=== PATIENT | male | born 1930 | race Caucasian/White ===

== ENCOUNTER 2016-04-06 14:32 | Emergency (ER) | payer MEDICARE, BC ==
[2016-04-06] MEDS ORDERED: NS 0.9% 1000 ML* 500 ML IV ONE (18:43)
[2016-04-06 19:11] LABS: Hematocrit 46 % (42-52); Hemoglobin 15.5 g/dl (14.0-18.0); Mean Corpuscular HGB Conc 33 g/dl (31-36); Mean Corpuscular Hemoglobin 31 pg (27-31); Mean Corpuscular Volume 93 fL (80-94); Mean Platelet Volume 11 um3 (7.4-10.4); Red Blood Count 4.98 10^6/ul (4.0-5.4); Red Cell Distribution Width 15 % (10.5-15); White Blood Count 10.6 10^3/ul (3.5-10.8)
[2016-04-06 19:27] LABS: ALT 12 U/L (7-52); Albumin 3.5 g/dL (3.2-5.2); Alkaline Phosphatase 105 U/L (34-104); Amylase 43 U/L (29-103); BUN/Creatinine Ratio 12.8 (8-20); Blood Urea Nitrogen 26 mg/dL (6-24); C Reactive Protein 25.53 mg/L (< 5.00); CO2 Carbon Dioxide 24 mmol/L (22-32); Calcium 9.8 mg/dL (8.6-10.3); Chloride 104 mmol/L (101-111); EGFR African American 40.4 (>60); EGFR Non-African American 31.4 (>60); Globulin 4.1 g/dL (2-4); Glucose 151 mg/dL (70-100); Lipase < 10 U/L (11.0-82.0); Sodium 135 mmol/L (133-145); Total Protein 7.6 g/dL (6.4-8.9)
[2016-04-06 19:33] LABS: Anion Gap 7 mmol/L (2-11); Potassium 4.4 mmol/L (3.5-5.0)
[2016-04-06 19:34] LABS: Comments Flag Yes
[2016-04-06] MEDS ORDERED: Iodixanol* (CONTRAST) 320 MG/ML 100 ML SDV IV ONE (19:54)
[2016-04-06 21:27] LABS: AST 26 U/L (13-39)
[2016-04-06] MEDS ORDERED: NS 0.9% 500 ML* 500 ML IV SCH (22:00)
--- NOTE | 2016-04-06 22:03 | RAD ---
Indication: Left abdominal pain, constipation. CT of the abdomen and pelvis was performed after oral and IV contrast administration. Administered 64.9 ml of VISAPAQUE 320 mgi/ml was given according to hospital protocol. Coronal and sagittal reconstructed images were obtained. Lung bases demonstrate bilateral pleural effusions greater on the right than on the left. The heart is enlarged without evidence of pericardial effusion. Liver is normal in size. No focal lesions or intrahepatic ductal dilatation is noted. Gallbladder demonstrates patient to be status post cholecystectomy. Common duct is not dilated. The pancreas demonstrates no mass or pancreatic duct dilatation. The spleen is normal in size. No adrenal lesions are noted. There is enlargement of the left kidney with left hydronephrosis. Left hydroureter is noted. There is a calculi in the left ureter at the L4 level measuring 5 mm. There is delay of excretion of the left kidney. The right kidney is unremarkable. No retroperitoneal adenopathy is noted. No a residual dilatation is noted. Atherosclerotic aorta is noted. Small bowel demonstrates no abnormal dilatation. Fecal stasis is noted with moderate degree of fecal impaction. Urinary bladder is unremarkable. No hernias are noted. IMPRESSION: NO EVIDENCE OF BOWEL OBSTRUCTION IS NOTED. THERE IS FECAL IMPACTION IN THE RECTUM. THERE IS LEFT HYDRONEPHROSIS WITH A 5 MM CALCULI IN THE MID LEFT URETER AT THE L4 LEVEL.
[2016-04-06] MEDS ORDERED: Sodium Phosphate ADULT ENEMA* 118 ml bottle PR ONE (22:35)
[2016-04-06] MEDS ORDERED: Magnesium CITRATE* 300 ML BTL PO ONE (22:35)
[2016-04-06] MEDS ORDERED: Magnesium Hydroxide LIQ* 30 ML UDC PO ONE (22:48)
[2016-04-06] MEDS ORDERED: Polyethylene Glycol 3350* 17 GM PACKET PO SCH (23:00)
--- NOTE | 2016-04-06 23:00 | ED ---
Amadou Fortune Adam, scribed for Tony Dodson MD on 04/06/16 at 1853 . Abdominal Pain/Male - HPI Summary HPI Summary: Pt is an 85 year old male presenting with LLQ abdominal pain and constipation. Pt has Alzheimer's and most of the history was provided by his family. They state that he has been c/o abdominal pain "for awhile". They state that over the past week he has been c/o constipation and has been putting his finger in his rectum in order to have a BM. Pt also c/o nausea and the family reports decreased PO intake and disrupted sleep pattern (increased sleeping during the day and difficulty sleeping at night). PMHx includes bladder CA, ICD, WA, GERD, sebaceous cyst, and cholecystectomy. - History of Current Complaint Chief Complaint: EDAbdPain Stated Complaint: LOWER LT ABD PAIN Time Seen by Provider: 04/06/16 18:43 Hx Obtained From: Patient Onset/Duration: Gradual Onset, Lasting Days, Still Present Timing: Constant, Lasting Days Severity Initially: Moderate Severity Currently: Moderate Pain Intensity: 4 Pain Scale Used: 0-10 Numeric Location: Discrete At: LLQ Radiates: No Aggravating Factor(s): Nothing Alleviating Factor(s): Nothing Associated Signs And Symptoms: Positive: Constipation, Nausea - Allergies/Home Medications Allergies/Adverse Reactions: Allergies Allergy/AdvReac Type Severity Reaction Status Date / Time No Known Allergies Allergy Verified 04/06/16 19:44 PMH/Surg Hx/FS Hx/Imm Hx Cardiovascular History: Reports: Hx Myocardial Infarction, Hx Pacemaker/ICD GI History: Reports: Hx Gastroesophageal Reflux Disease Neurological History: Reports: Other Neuro Impairments/Disorders - Alzheimer's - Cancer History Cancer Type, Location and Year: Bladder CA - Surgical History Surgery Procedure, Year, and Place: Cholecystectomy Infectious Disease History: No Infectious Disease History: Denies: Traveled Outside the [place] in Last 30 Days - Social History Occupation: Retired Lives: With Family - Review of Systems Constitutional: Negative Negative: Fever Positive: Abdominal Pain, Nausea, Other - Constipation, decreased PO intake All Other Systems Reviewed And Are Negative: Yes Physical Exam - Summary Physical Exam Summary: VITAL SIGNS: Reviewed. GENERAL: Patient is a thin male who is lying comfortable in the stretcher. Patient is not in any acute respiratory distress. HEAD AND FACE: No signs of trauma. No ecchymosis, hematomas or skull depressions. No sinus tenderness. EYES: PERRLA, EOMI x 2 EARS: Hearing grossly intact. MOUTH: Oropharynx within normal limits. Dry oral mucosa. NECK: Supple, trachea is midline, no adenopathy, no JVD CHEST: Symmetric, no tenderness at palpation LUNGS: Clear to auscultation bilaterally. No wheezing or crackles. CVS: Regular rate and rhythm, S1 and S2 present, no murmurs or gallops appreciated. ABDOMEN: Soft, flat, non-tender. No signs of distention. No rebound no guarding , and no masses palpated. Bowel sounds are normal. There is no inguinal hernia. Rectal Exam: Normal sphincter tone. I removed some stool for the vault of the rectum. I believe there is more stool outside of my reach. EXTREMITIES: FROM in all major joints, no edema, no cyanosis or clubbing. NEURO: Alert and oriented x 1. No acute neurological deficits. Speech is normal and follows commands. SKIN: Dry and warm Triage Information Reviewed: Yes Vital Signs On Initial Exam: Initial Vitals Temp Pulse Resp BP Pulse Ox 98.1 F 72 16 165/100 97 04/06/16 14:48 04/06/16 14:48 04/06/16 14:48 04/06/16 14:48 04/06/16 14:48 Vital Signs Reviewed: Yes Diagnostics - Vital Signs Vital Signs Temp Pulse Resp BP Pulse Ox 04/06/16 16:55 98 F 80 19 156/108 04/06/16 14:48 98.1 F 72 16 165/100 97 - Laboratory Lab Results: Lab Results 04/06/16 04/06/16 Range/Units 18:55 18:55 WBC 10.6 (3.5-10.8) 10^3/ul RBC 4.98 (4.0-5.4) 10^6/ul Hgb 15.5 (14.0-18.0) g/dl Hct 46 (42-52) % MCV 93 (80-94) fL MCH 31 (27-31) pg MCHC 33 (31-36) g/dl RDW 15 (10.5-15) % Plt Count 145 L (150-450) 10^3/ul MPV 11 H (7.4-10.4) um3 Neut % (Auto) 84.9 H (38-83) % Lymph % (Auto) 7.5 L (25-47) % [place] % (Auto) 6.9 (1-9) % Eos % (Auto) 0.2 (0-6) % Baso % (Auto) 0.5 (0-2) % Absolute Neuts (auto) 9.0 H (1.5-7.7) 10^3/ul Absolute Lymphs (auto) 0.8 L (1.0-4.8) 10^3/ul Absolute Monos (auto) 0.7 (0-0.8) 10^3/ul Absolute Eos (auto) 0 (0-0.6) 10^3/ul Absolute Basos (auto) 0 (0-0.2) 10^3/ul Absolute Nucleated RBC 0.02 10^3/ul Nucleated RBC % 0.2 Sodium 135 (133-145) mmol/L Potassium 4.4 (3.5-5.0) mmol/L Chloride 104 (101-111) mmol/L Carbon Dioxide 24 (22-32) mmol/L Anion Gap 7 (2-11) mmol/L BUN 26 H (6-24) mg/dL Creatinine 2.03 H (0.67-1.17) mg/dL Est GFR ( Amer) 40.4 (>60) Est GFR (Non-Af Amer) 31.4 (>60) BUN/Creatinine Ratio 12.8 (8-20) Glucose 151 H (70-100) mg/dL Calcium 9.8 (8.6-10.3) mg/dL Total Bilirubin 1.40 H (0.2-1.0) mg/dL AST Pending ALT 12 (7-52) U/L Alkaline Phosphatase 105 H (34-104) U/L C-Reactive Protein 25.53 H (< 5.00) mg/L Total Protein 7.6 (6.4-8.9) g/dL Albumin 3.5 (3.2-5.2) g/dL Globulin 4.1 H (2-4) g/dL Albumin/Globulin Ratio 0.9 L (1-3) Amylase 43 (29-103) U/L Lipase < 10 L (11.0-82.0) U/L Result Diagrams: 04/06/16 18:55 04/06/16 18:55 Lab Statement: Any lab studies that have been ordered have been reviewed, and results considered in the medical decision making process. - CT A/P CT Interpretation Completed By: Radiologist - IMPRESSION: NO EVIDENCE OF BOWEL OBSTRUCTION IS NOTED. THERE IS FECAL IMPACTION IN THE RECTUM. THERE IS LEFT HYDRONEPHROSIS WITH A 5 MM CALCULI IN THE MID LEFT URETER AT THE L4 LEVEL. Abdominal Pain Fem Course/Dx - Course Assessment/Plan: Pt is an 85 year old male presenting with LLQ abdominal pain and constipation. Pt has Alzheimer's and most of the history was provided by his family. They state that he has been c/o abdominal pain "for awhile". They state that over the past week he has been c/o constipation and has been putting his finger in his rectum in order to have a BM. Pt also c/o nausea and the family reports decreased PO intake and disrupted sleep pattern (increased sleeping during the day and difficulty sleeping at night). PMHx includes bladder CA, ICD, WA, GERD, sebaceous cyst, and cholecystectomy. Blood work wnl except for increased BUN and Creatinine. ABdominal and Pelvic CT impression: No obstruction. Fecal impaction in the rectum. Rectal exam: normal sphincter tone. I was able to remove a small amount of stool from the vault. Patient given Miralax, Magnesium Citrate, Lactulose and a fleet enema. At this time patient will be discharged home with F/U of pmd. I discussed all my findings and test results with the patient and his family members . Patient understands and agrees. Patient and hi family were instructed to return to the emergency room immediately if any of the symptoms return or worsens. They understand and agree. Plan of care was discussed with the patient and patient and his family and they understand and agree with the plan of care. All questions were answered at patient satisfaction. There were no further complaints or concerns. Patient was instructed to follow up with primary care physician within 3 to 5 days. Patient is hemodynamically stable. Patient is alert and oriented x 3. No acute neurological deficits. - Diagnoses Differential Diagnosis/HQI/PQRI: Bowel Obstruction, Constipation, Diverticulitis , Renal Colic Provider Diagnoses: Fecal impaction, Constipation Discharge - Discharge Plan Condition: Stable Disposition: HOME Prescriptions: Magnesium CITRATE* [Citrate of Magnesia*] 300 ml PO ONCE #1 btl Magnesium Hydroxide LIQ* [Milk of Magnesia LIQ*] 30 ml PO BID PRN #1 btl PRN Reason: Constipation Sodium Phosphate ADULT ENEMA* [Fleet Enema*] 2 enema OR DAILY PRN #1 [id number] PRN Reason: Constipation Patient Education Materials: Fecal Impaction (ED), Constipation (ED) Referrals: Terry Kurtz MD [Primary Care Provider] - Additional Instructions: Follow up with Dr. Kurtz. The documentation as recorded by the Amadou cardona Adam accurately reflects the service I personally performed and the decisions made by [place] ren[place]ia Walter, MD.
[2016-04-06 23:56] VITALS: BP 138/84
== END 2016-04-06 23:52 | disposition home or self-care (01) ==
LOC: ED 14:32
DX: K56.41 Fecal impaction (principal); K59.00 Constipation, unspecified; R10.32 Left lower quadrant pain; R11.0 Nausea
CPT/HCPCS: 36415; 74177; 80053; 82150; 83690; 85025; 86140; 99285; A9270-GY; Q9967